=== PATIENT | male | born 1995 | race Caucasian/White ===

== ENCOUNTER 2016-10-01 08:18 | Emergency (ER) | payer OTHER ==
[2016-10-01 08:34] VITALS: BP 130/87; PULSE 92; RESP 18; TEMP 98.2
[2016-10-01] MEDS ORDERED: HYDROcodone/APAP 5-325MG 1 EACH TAB PO STA (08:42)
[2016-10-01] MEDS ORDERED: PENICILLIN VK 500MG STARTER 4 TAB BTL PO STA (08:42)
--- NOTE | 2016-10-01 08:45 | ED ---
ENT HPI - General Chief complaint: Dental/Oral Stated complaint: tooth ache Time Seen by Provider: 10/01/16 08:37 Source: patient, RN notes reviewed Mode of arrival: ambulatory Limitations: no limitations - History of Present Illness Initial comments: 21-year-old male presents emergency Department chief complaint of swollen lip. Patient states he had his wisdom tooth removed to 4 days ago he woke up this morning with a swollen lip. Patient states 3 tender to touch. Patient states that he has not had a fever chills. Patient denies any other symptoms at this time. Patient states that he was concerned due to his symptoms were thought that he should be evaluated.Patient denies any recent fever, chills, shortness of breath, chest pain, back pain, abdominal pain, nausea vomiting, numbness or tingling, dysuria or hematuria, constipation or diarrhea, headaches or visual changes, or any other current symptoms. - Related Data Home Medications Medication Instructions Recorded Confirmed Ibuprofen [Motrin] 600 mg PO Q6H PRN 10/01/16 10/01/16 Previous Rx's Medication Instructions Recorded Hydrocodone/Acetaminophen [[place] 1 each PO Q6HR PRN #20 tab 10/01/16 5-325] Penicillin V Potassium [Pen Vee K] 500 mg PO TID #40 tab 10/01/16 Allergies Allergy/AdvReac Type Severity Reaction Status Date / Time No Known Allergies Allergy Verified 10/01/16 08:34 Review of Systems ROS Statement: Those systems with pertinent positive or pertinent negative responses have been documented in the HPI. ROS Other: All systems not noted in ROS Statement are negative. Past Medical History Past Medical History: No Reported History Additional Past Medical History / Comment(s): kidney stones History of Any Multi-Drug Resistant Organisms: None Reported Past Surgical History: No Surgical Hx Reported Additional Past Surgical History / Comment(s): wisdom tooth extraction Past Psychological History: No Psychological Hx Reported Smoking Status: Never smoker Past Alcohol Use History: Occasional Past Drug Use History: None Reported General Exam Limitations: no limitations General appearance: alert, in no apparent distress ENT exam: Present: mucous membranes moist. Absent: normal oropharynx (Patient appears to have a dental abscess over tooth #9 that is drainage to palpation.) Neck exam: Present: normal inspection. Absent: tenderness, meningismus, lymphadenopathy Respiratory exam: Present: normal lung sounds bilaterally. Absent: respiratory distress, wheezes, rales, rhonchi, stridor Cardiovascular Exam: Present: regular rate, normal rhythm, normal heart sounds. Absent: systolic murmur, diastolic murmur, rubs, gallop, clicks Neurological exam: Present: alert, oriented X3 Psychiatric exam: Present: normal affect, normal mood Skin exam: Present: warm, dry, intact, normal color. Absent: rash Course Vital Signs 10/01/16 08:31 Temperature 98.2 F Pulse Rate 92 Respiratory 18 Rate Blood Pressure 130/87 O2 Sat by Pulse 96 Oximetry Medical Decision Making - Medical Decision Making 21-year-old male presents emergency Department what appears to be dental abscess. This time it is draining. We will start patient pain medication as well as antibiotics. We did discuss return for fevers and follow-up. Patient is negative plan 7 answered. He will be discharged home Disposition Clinical Impression: Dental abscess Disposition: HOME SELF-CARE Condition: Stable Instructions: Dental Abscess (ED) Additional Instructions: Please use medication as discussed. Please follow up with family doctor if symptoms have not improved over the next two days. Please return to the emergency room if your symptoms increase or worsen or for any other concerns. Prescriptions: Hydrocodone/Acetaminophen [[place] 5-325] 1 each PO Q6HR PRN #20 tab PRN Reason: Pain Penicillin V Potassium [Pen Vee K] 500 mg PO TID #40 tab Referrals: Kathleen Handy MD [Primary Care Provider] - 1-2 days Time of Disposition: 08:44
== END 2016-10-01 08:56 | disposition home or self-care (01) ==
LOC: EC 08:18
DX: K04.7 Periapical abscess without sinus (principal)
CPT/HCPCS: 99282

== ENCOUNTER 2017-12-05 15:25 | Emergency (ER) | payer OTHER ==
[2017-12-05 15:35] VITALS: BP 126/71; PULSE 74; RESP 20; TEMP 98
--- NOTE | 2017-12-05 15:42 | ED ---
General Adult HPI - General Chief complaint: Extremity Injury, Lower Stated complaint: FB in foot/infection Time Seen by Provider: 12/05/17 15:39 Source: patient, RN notes reviewed Mode of arrival: ambulatory Limitations: no limitations - History of Present Illness Initial comments: Patient 22-year-old male presented to the emergency room today with a chief complaint of injury to the right foot that occurred 3 weeks ago. Patient does not the following day he noticed small black area to the ball of foot. He states that when he steps certain ways at times she has a pain. He denies any complaints symptoms. Patient denies any recent fever, chills, shortness of breath, chest pain, back pain, abdominal pain, constipation or diarrhea, headaches or visual changes, or any other complaints. - Related Data Home Medications Medication Instructions Recorded Confirmed No Known Home Medications 12/05/17 12/05/17 Allergies Allergy/AdvReac Type Severity Reaction Status Date / Time No Known Allergies Allergy Verified 12/05/17 15:42 Review of Systems ROS Statement: Those systems with pertinent positive or pertinent negative responses have been documented in the HPI. ROS Other: All systems not noted in ROS Statement are negative. Past Medical History Past Medical History: No Reported History Additional Past Medical History / Comment(s): kidney stones History of Any Multi-Drug Resistant Organisms: None Reported Past Surgical History: No Surgical Hx Reported Additional Past Surgical History / Comment(s): wisdom tooth extraction Past Psychological History: No Psychological Hx Reported Smoking Status: Never smoker Past Alcohol Use History: Occasional Past Drug Use History: None Reported General Exam - General Exam Comments Initial Comments: General: The patient is awake and alert, in no distress, and does not appear acutely ill. Eye: Pupils are equal, round and reactive to light, extra-ocular movements are intact. No nystagmus. There is normal conjunctiva bilaterally. No signs of icterus. Ears, nose, mouth and throat: There are moist mucous membranes and no oral lesions. Neck: The neck is supple, there is no tenderness or JVD. Musculoskeletal: Normal ROM. Strength 5/5. Sensation intact. Pulses equal bilaterally 2+. Neurological: A&O x 3. CN II-XII intact, There are no obvious motor or sensory deficits. Coordination appears grossly intact. Speech is normal. Skin: Skin is warm and dry and no rashes. Blood blister to the ball of the right foot. Measures half centimetert. Psychiatric: Cooperative, appropriate mood & affect, normal judgment. Limitations: no limitations Course Vital Signs 12/05/17 15:34 Temperature 98.0 F Pulse Rate 74 Respiratory 20 Rate Blood Pressure 126/71 O2 Sat by Pulse 99 Oximetry Medical Decision Making - Medical Decision Making X-ray reviewed as negative for any sign of foreign body. No other acute abnormality. Patient's injury happened 3 weeks ago. There is a small blood blister to the ball of the foot. Is not clear if there is a true foreign body. Was discussed with patient about following up with orthopedics for further evaluation of the area. Distal sign of action. Patient will be discharged home. Disposition Clinical Impression: Blood blister, Foot injury Disposition: HOME SELF-CARE Condition: Good Instructions: Soft Tissue Foreign Body (ED) Additional Instructions: Please follow-up with orthopedics over the next 3-5 days. Please watch for any signs of infection as discussed. Please return to emergency room if the symptoms increase or worsen or for any other concerns. Is patient prescribed a controlled substance at d/c from ED?: No Referrals: None,Stated [Primary Care Provider] - 1-2 days Kevin Farley MD [STAFF PHYSICIAN] - 1-2 days Time of Disposition: 16:14
--- NOTE | 2017-12-05 16:01 | XR ---
EXAMINATION TYPE: XR foot complete RT DATE OF EXAM: 12/05/2017 COMPARISON: None HISTORY: Right foot pain x3 weeks TECHNIQUE: 3 views right foot FINDINGS: No acute displaced fractures are evident. Joint spaces are preserved. Soft tissues are norm al. IMPRESSION: 1. No acute osseous abnormality right foot
== END 2017-12-05 16:21 | disposition home or self-care (01) ==
LOC: EC 15:25
DX: S90.822A Blister (nonthermal), left foot, initial encounter (principal); Y92.009 Unspecified place in unspecified non-institutional (private) residence as the place of occurrence of the external cause
CPT/HCPCS: 99283

== ENCOUNTER 2020-08-11 04:50 | Emergency (ER) | payer BC, OTHER ==
[2020-08-11 04:57] VITALS: BP 122/76; PULSE 101; RESP 19; TEMP 99.8
--- NOTE | 2020-08-11 05:09 | ED ---
URI HPI - General Chief Complaint: ENT Stated Complaint: Sore throat, headache Time Seen by Provider: 08/11/20 04:52 Source: patient Mode of arrival: ambulatory - Related Data Home Medications Medication Instructions Recorded Confirmed No Known Home Medications 12/05/17 12/05/17 Allergies Allergy/AdvReac Type Severity Reaction Status Date / Time No Known Allergies Allergy Verified 08/11/20 04:57 Review of Systems ROS Statement: Those systems with pertinent positive or pertinent negative responses have been documented in the HPI. ROS Other: All systems not noted in ROS Statement are negative. Past Medical History Past Medical History: No Reported History Additional Past Medical History / Comment(s): kidney stones History of Any Multi-Drug Resistant Organisms: None Reported Past Surgical History: No Surgical Hx Reported Additional Past Surgical History / Comment(s): wisdom tooth extraction Past Psychological History: No Psychological Hx Reported, Anxiety, Depression Smoking Status: Former smoker Past Alcohol Use History: Occasional Past Drug Use History: None Reported Course Vital Signs 08/11/20 04:54 Temperature 99.8 F H Pulse Rate 101 H Respiratory 19 Rate Blood Pressure 122/76 O2 Sat by Pulse 97 Oximetry Medical Decision Making - Lab Data Lab Results 08/11/20 Range/Units 05:02 Coronavirus (PCR) Detected A (Not Detectd) Disposition Clinical Impression: Coronavirus infection Disposition: HOME SELF-CARE Condition: Good Instructions (If sedation given, give patient instructions): Coronavirus Disease 2019 (COVID-19) Is patient prescribed a controlled substance at d/c from ED?: No Referrals: None,Stated [Primary Care Provider] - 1-2 days
--- NOTE | 2020-08-11 05:39 | XR ---
EXAM: XR Chest, 1 View CLINICAL HISTORY: ITS.REASON XR Reason: cp TECHNIQUE: Frontal view of the chest. COMPARISON: No relevant prior studies available. FINDINGS: Lungs: Unremarkable. No consolidation. Pleural space: Unremarkable. No pneumothorax. Heart: Unremarkable. No cardiomegaly. Mediastinum: Unremarkable. Bones/joints: Unremarkable. IMPRESSION: No focal infiltrate.
== END 2020-08-11 06:46 | disposition home or self-care (01) ==
LOC: EC 04:50
DX: U07.1 COVID-19 (principal); Z87.891 Personal history of nicotine dependence
CPT/HCPCS: 71045; 87635; 99284

== ENCOUNTER 2020-12-12 16:26 | Emergency (ER) | payer BC ==
[2020-12-12 16:37] VITALS: BP 111/74; PULSE 88; RESP 18; TEMP 98
--- NOTE | 2020-12-12 17:32 | ED ---
ENT HPI - General Chief complaint: ENT Stated complaint: Congestion/Headache/Sore Throat Time Seen by Provider: 12/12/20 16:38 Source: patient Mode of arrival: ambulatory Limitations: no limitations - History of Present Illness Initial comments: 25-year-old male presents to emergency department with a chief complaint of sinus congestion, sore throat and cough. Status symptoms been ongoing for the past 3 days. Reports clear bilateral rhinorrhea with occasional sore throat, particularly in the morning. Since the cough is nonproductive but denies any associated chest pain or shortness of breath. Denies any fevers or chills or Covid exposure. Denies any nausea vomiting or diarrhea. - Related Data Previous Rx's Medication Instructions Recorded Cetirizine HCl/Pseudoephedrine 1 each PO BID 15 Days #30 12/12/20 [Zyrtec-D Tablet] tab.er.12h Allergies Allergy/AdvReac Type Severity Reaction Status Date / Time No Known Allergies Allergy Verified 12/12/20 16:37 Review of Systems ROS Statement: Those systems with pertinent positive or pertinent negative responses have been documented in the HPI. ROS Other: All systems not noted in ROS Statement are negative. Past Medical History Past Medical History: No Reported History Additional Past Medical History / Comment(s): kidney stones History of Any Multi-Drug Resistant Organisms: None Reported Past Surgical History: No Surgical Hx Reported Additional Past Surgical History / Comment(s): wisdom tooth extraction Past Psychological History: No Psychological Hx Reported, Anxiety, Depression Smoking Status: Former smoker Past Alcohol Use History: Occasional Past Drug Use History: None Reported General Exam Limitations: no limitations General appearance: alert, in no apparent distress Head exam: Present: atraumatic, normocephalic, normal inspection Eye exam: Present: normal appearance, PERRL, EOMI Pupils: Present: normal accommodation ENT exam: Present: normal exam, normal oropharynx, mucous membranes moist Neck exam: Present: normal inspection, full ROM. Absent: tenderness Respiratory exam: Present: normal lung sounds bilaterally. Absent: respiratory distress Cardiovascular Exam: Present: regular rate, normal rhythm, normal heart sounds. Absent: systolic murmur Extremities exam: Present: normal inspection, full ROM, normal capillary refill. Absent: tenderness, pedal edema, joint swelling Back exam: Present: normal inspection, full ROM. Absent: tenderness Neurological exam: Present: alert, oriented X3 Psychiatric exam: Present: normal affect, normal mood Skin exam: Present: warm, dry, intact, normal color Course Vital Signs 12/12/20 16:34 Temperature 98 F Pulse Rate 88 Respiratory 18 Rate Blood Pressure 111/74 O2 Sat by Pulse 95 Oximetry Medical Decision Making - Medical Decision Making 25-year-old male presents emergency Department with a chief complaint of sore throat and sinus congestion. Physical examination is unremarkable. Covid negative. I will prescribe Zyrtec. Patient likely has an upper respiratory infection. Return parameters were thoroughly discussed patient is understanding and agreeable. Case discussed with physician. - Lab Data Lab Results 12/12/20 Range/Units 17:10 Coronavirus (PCR) Not Detected (Not Detectd) Disposition Clinical Impression: Upper respiratory infection Disposition: HOME SELF-CARE Condition: Stable Instructions (If sedation given, give patient instructions): Upper Respiratory Infection (DC) Additional Instructions: Take prescribed medication as directed. Return to emergency department if symptoms worsen. Prescriptions: Cetirizine HCl/Pseudoephedrine [Zyrtec-D Tablet] 1 each PO BID 15 Days #30 tab.er.12h Is patient prescribed a controlled substance at d/c from ED?: No Referrals: None,Stated [Primary Care Provider] - 1-2 days Time of Disposition: 17:32
== END 2020-12-12 18:12 | disposition home or self-care (01) ==
LOC: EC 16:26
DX: J06.9 Acute upper respiratory infection, unspecified (principal); Z87.891 Personal history of nicotine dependence; Z20.822 Contact with and (suspected) exposure to COVID-19
CPT/HCPCS: 87635; 99284